=== PATIENT | female | born 1975 | race Caucasian/White ===

== ENCOUNTER 2019-09-27 19:41 | Emergency (ER) | payer OTHER ==
[~2019-09-27] VITALS: Ht 162.6 cm; Wt 79.4 kg
[~2019-09-27 19:41] MED LIST: CIPROFLOXACIN500 M1 PO; COLACE100 MG PO; DARVOCET-N 1001 EACH PO; DILAUDID2 M1 PO; FLEXERIL PO; HYDROCODONE-AP1 EAC6 PO; NORCO 5-325 TA1 EACH PO; PHENERGAN 25 MG25 MG PO; PREDNISONE 20 M20 M1 PO; SYNTHROID100 MCG PO; TRAMADOL; ZOFRAN ODT4 MG PO
[2019-09-27 20:22] LABS: HEMATOCRIT 47.6 % (37.0-47.0); MCH 29.5 pg (26.0-34.0); MCHC 35.6 g/dL (28.0-37.0); MCV 82.7 fL (80.0-100.0); MPV 8.5 fl. (7.2-11.1); NUCLEATED RBCS 0 /100WBC; PLATELET COUNT* 286 thou/uL (150-400); RBC 5.76 mil/uL (4.20-5.00); RDW-CV 14.3 % (10.5-14.5); WBC 22.1 thou/uL (4.0-11.0)
[2019-09-27 20:33] LABS: ALBUMIN 4.6 g/dL (3.4-5.0); CREATININE 1.3 mg/dL (0.6-1.3); TOTAL BILIRUBIN 2.4 mg/dL (<0.1-1.0); TOTAL PROTEIN 9.7 g/dL (6.4-8.2)
[2019-09-27] MEDS ORDERED: SYNTHROID175 MCG PO (20:35)
[2019-09-27 20:36] LABS: POTASSIUM 3.8 mmol/L (3.5-5.1)
[2019-09-27] MEDS ORDERED: CYMBALTA30 MG PO (20:36)
[2019-09-27] MEDS ORDERED: HYDROCHLOROTHIA25 M1 PO (20:37)
[2019-09-27 20:45] LABS: BE -1.4 mmol/L (-2 to +3)
[2019-09-27 20:48] LABS: pH 7.621 (7.340-7.450)
[2019-09-27 20:49] LABS: PCO2 < 17.0 mmHg (35.0-45.0); PO2 149.7 mmHg (75.0-100.0)
[2019-09-27 20:51] LABS: ACETAMINOPHEN < 2 ug/mL (10-30); ALCOHOL < 10 mg/dL (<10); SALICYLATE < 2.8 mg/dL (2.8-20.0)
[2019-09-27 21:02] LABS: APTT 23.5 Seconds (25.0-31.3); INR 1.1; PROTIME 10.8 Seconds (9.20-11.50)
[2019-09-27 21:29] LABS: ABSOLUTE LYMPHOCYTES 1.5 thou/uL (0.8-5.3); ABSOLUTE MONOCYTES 0.7 thou/uL (0.0-1.2); ABSOLUTE NEUTROPHILS 19.9 thou/uL (1.6-8.1)
[2019-09-27 21:30] VITALS: BP 154/97
[2019-09-27 21:30] LABS: PLATELET ESTIMATE ADEQUATE
--- NOTE | 2019-09-28 10:58 | EKG ---
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1975 Requested By: Devin Issa Order Number: [id number] MD: Isaac Ji Measurements Intervals [place] Rate: 90 P: 79 ND: 136 QRS: 40 QRSD: 97 T: 37 QT: 515 QTc: 631 Interpretive Statements Sinus rhythm Abnormal R-wave progression, early transition Nonspecific T abnrm, anterolateral leads, consider ischemia Prolonged QT interval Compared to ECG 09/16/2015 11:05:31 Prolonged QT interval now present st-t changes are noted Electronically Signed On 09-28-2019 10:56:47 CDT by Isaac Ji [email or web address] <ELECTRONICALLY SIGNED> By: Isaac Ji MD, [facility] 09/28/19 1056 19 19 Isaac Ji MD, [facility] /EPI
== END 2019-09-27 21:30 | disposition short-term general hospital (02) ==
LOC: M.ERS 19:41
PROVIDERS: Family Medicine
DX: I61.9 Nontraumatic intracerebral hemorrhage, unspecified (principal); I60.9 Nontraumatic subarachnoid hemorrhage, unspecified; I10 Essential (primary) hypertension; J45.909 Unspecified asthma, uncomplicated; E03.9 Hypothyroidism, unspecified; G43.909 Migraine, unspecified, not intractable, without status migrainosus; Z90.49 Acquired absence of other specified parts of digestive tract; Z88.6 Allergy status to analgesic agent; Z88.0 Allergy status to penicillin; Z88.8 Allergy status to other drugs, medicaments and biological substances

== ENCOUNTER 2020-06-10 20:18 | Emergency (ER) | payer MEDICAID ==
[~2020-06-10] VITALS: Ht 165.1 cm; Wt 72.6 kg
[~2020-06-10 20:18] MED LIST changes: +CYMBALTA30 MG PO; +HYDROCHLOROTHIA25 M1 PO; +SYNTHROID175 MCG PO
[2020-06-10] MEDS ORDERED: LASIX 40 MG TAB40 MG PO (20:29)
[2020-06-10] MEDS ORDERED: NEURONTIN100 MG PO (20:30)
[2020-06-10] MEDS ORDERED: COZAAR 25 MG TA25 M1 PO (20:30)
[2020-06-10 20:46] LABS: ABSOLUTE EOSINOPHILS 0.4 thou/uL (0.0-0.7); ABSOLUTE LYMPHOCYTES 2.5 thou/uL (0.8-5.3); ABSOLUTE MONOCYTES 0.5 thou/uL (0.0-1.2); ABSOLUTE NEUTROPHILS 2.6 thou/uL (1.6-8.1); BASOPHILS 0.7 %; EOSINOPHILS 6.9 %; HEMATOCRIT 38.9 % (37.0-47.0); HEMOGLOBIN 13.3 gm/dL (12.0-15.0); LYMPHOCYTES 40.9 %; MCH 28.8 pg (26.0-34.0); MCHC 34.2 g/dL (28.0-37.0); MONOCYTES 8.2 %; MPV 7.3 fl. (7.2-11.1); NUCLEATED RBCS 0 /100WBC; PLATELET COUNT* 207 thou/uL (150-400); POLYS 43.3 %; RBC 4.63 mil/uL (4.20-5.00); RDW-CV 13.7 % (10.5-14.5); WBC 6.1 thou/uL (4.0-11.0)
[2020-06-10 21:00] LABS: CALCIUM 8.6 mg/dL (8.5-10.1); POTASSIUM 3.3 mmol/L (3.5-5.1)
[2020-06-10 21:02] LABS: PROTIME 9.9 Seconds (9.20-11.50)
[2020-06-10 21:13] LABS: ALBUMIN 3.7 g/dL (3.4-5.0); MAGNESIUM 2.4 mg/dL (1.8-2.4); TOTAL BILIRUBIN 0.6 mg/dL (<0.1-1.0); TOTAL PROTEIN 7.7 g/dL (6.4-8.2)
[2020-06-10 21:15] LABS: INR < 0.9
[2020-06-10 23:39] LABS: URINE BILIRUBIN NEGATIVE (Negative); URINE BLOOD NEGATIVE (Negative); URINE CLARITY CLOUDY; URINE COLOR YELLOW; URINE GLUCOSE-RANDOM NEGATIVE (Negative); URINE KETONES TRACE (Negative); URINE LEUKOCYTES-REFLEX NEGATIVE (Negative); URINE NITRITE-REFLEX NEGATIVE (Negative); URINE PROTEIN NEGATIVE (Negative); URINE UROBILINOGEN 0.2 E.U./dl (0.2-1.0)
[2020-06-10 23:41] LABS: BACTERIA-REFLEX 1-9 Few /HPF (None Seen); CASTS None Seen /LPF (None Seen); MUCUS 0-3 Light strn/LPF (None Seen); SQUAMOUS 4-10 Moderate /LPF (0-3); URINE RBC None Seen /HPF (0-2); URINE WBC-REFLEX None Seen /HPF (0-5)
[2020-06-10 23:42] LABS: AMORPHOUS PHOSPHATES Many /LPF (None Seen)
[2020-06-11] MEDS ORDERED: ZOFRAN ODT4 MG PO (00:15)
[2020-06-11 00:30] VITALS: BP 109/69
--- NOTE | 2020-06-11 10:05 | EKG ---
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1975 Requested By: Kateirn Hull Order Number: [id number] MD: Chung Ramsay Measurements Intervals [place] Rate: 104 P: 73 VA: 136 QRS: 64 QRSD: 85 T: 66 QT: 369 QTc: 486 Interpretive Statements Sinus tachycardia RSR' in V1 or V2, probably normal variant Borderline prolonged QT interval Compared to ECG 09/27/2019 20:20:03 RSR' in V1 or V2 now present Sinus rhythm no longer present Possible ischemia no longer present Electronically Signed On 06-11-2020 10:05:37 [employer]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
== END 2020-06-11 00:31 | disposition home or self-care (01) ==
LOC: M.ERS 20:18
PROVIDERS: Emergency Medicine
DX: R11.10 Vomiting, unspecified (principal); R20.2 Paresthesia of skin; J45.909 Unspecified asthma, uncomplicated; E03.9 Hypothyroidism, unspecified; G43.909 Migraine, unspecified, not intractable, without status migrainosus; Z88.0 Allergy status to penicillin; Z88.6 Allergy status to analgesic agent; Z79.899 Other long term (current) drug therapy; Z86.73 Personal history of transient ischemic attack (TIA), and cerebral infarction without residual deficits

== ENCOUNTER → 2020-07-07 | Outpatient (CLI) | payer MEDICAID ==
[~2020-07-07] MED LIST changes: +COZAAR 25 MG TA25 M1 PO; +LASIX 40 MG TAB40 MG PO; +NEURONTIN100 MG PO
== END ==
LOC: M.ULTRA 07-06 11:00
PROVIDERS: ATTEND Nurse Practitioner Family
DX: N28.1 Cyst of kidney, acquired (principal); I10 Essential (primary) hypertension

== ENCOUNTER 2020-12-21 10:28 | Emergency (ER) | payer MEDICAID ==
[~2020-12-21] VITALS: Ht 165.1 cm; Wt 73.9 kg
[2020-12-21 10:54] LABS: ABSOLUTE EOSINOPHILS 0.4 thou/uL (0.0-0.7); ABSOLUTE MONOCYTES 0.4 thou/uL (0.0-1.2); ABSOLUTE NEUTROPHILS 3.2 thou/uL (1.6-8.1); BASOPHILS 0.3 %; HEMATOCRIT 39.3 % (37.0-47.0); HEMOGLOBIN 13.6 gm/dL (12.0-15.0); LYMPHOCYTES 32.9 %; MCH 30.2 pg (26.0-34.0); MCHC 34.8 g/dL (28.0-37.0); MCV 86.7 fL (80.0-100.0); MONOCYTES 6.6 %; MPV 6.9 fl. (7.2-11.1); NUCLEATED RBCS 0 /100WBC; PLATELET COUNT* 183 thou/uL (150-400); POLYS 53.2 %; RBC 4.52 mil/uL (4.20-5.00); RDW-CV 13.5 % (10.5-14.5); WBC 6.1 thou/uL (4.0-11.0)
[2020-12-21 11:10] LABS: CALCIUM 8.5 mg/dL (8.5-10.1); CREATININE 0.9 mg/dL (0.6-1.3); POTASSIUM 3.7 mmol/L (3.5-5.1)
[2020-12-21 11:14] LABS: ALBUMIN 3.8 g/dL (3.4-5.0); TOTAL BILIRUBIN 0.7 mg/dL (<0.1-1.0)
[2020-12-21] MEDS ORDERED: LIPITOR 20 MG T20 M1 PO (11:25)
[2020-12-21] MEDS ORDERED: TOPAMAX100 MG PO (11:26)
[2020-12-21 11:39] VITALS: BP 118/82
== END 2020-12-21 11:40 | disposition home or self-care (01) ==
LOC: M.ERS 10:28
PROVIDERS: Family Medicine
DX: R20.2 Paresthesia of skin (principal); J45.909 Unspecified asthma, uncomplicated; E03.9 Hypothyroidism, unspecified; G43.909 Migraine, unspecified, not intractable, without status migrainosus; Z86.73 Personal history of transient ischemic attack (TIA), and cerebral infarction without residual deficits; Z88.0 Allergy status to penicillin; Z90.49 Acquired absence of other specified parts of digestive tract; Z88.6 Allergy status to analgesic agent